=== PATIENT | female | born 1975 | race Caucasian/White ===

== ENCOUNTER 2021-12-19 20:37 | Emergency (ER) | payer BC ==
--- NOTE | 2021-12-19 20:47 | NUR ---
Patient was called to be triaged, but patient states in the waiting room "I change my mind, I don't want to be seen anymore. I am just going home." Patient was encouraged to stay to be evalk by ERMD but refused and left with family member.
== END 2021-12-19 20:54 | disposition left against medical advice (07) ==
LOC: ER 20:37
DX: Z53.21 Procedure and treatment not carried out due to patient leaving prior to being seen by health care provider (principal)